=== PATIENT | female | born 1960 | race Caucasian/White ===

== ENCOUNTER 2016-05-30 11:06 | Inpatient (IN) ==
[2016-05-30] MEDS ORDERED: Naloxone 0.4 MG/ML INJ IVP PRN (17:33)
[2016-05-30] MEDS: Ringers Solution, Lactated 1,000 ML IVC SCH (18:37)
[2016-05-30] MEDS ORDERED: *HR* HYDROmorphone (PF) 1 MG/ML SYRINGE IVP PRN (19:36)
--- NOTE | 2016-05-30 20:28 | General Surg History&Physical ---
Date of Encounter: 05/30/16 Time of Encounter: 13:00 History of Present Illness Chief complaint: Left lower quadrant bowel pain, abnormal CT HPI: Ms. Thayer is a 56 year old female transferred from [facility] after presenting there with extensive history of left lower quadrant abdominal pain. Patient did symptoms started 05/24/15, with some nausea and colicky abdominal pain. The symptoms seemed to diminish for the next 2 days but then resumed and became significantly worse over the weekend. The patient presented this morning with severe left lower quadrant abdominal pain. A CT of the abdomen pelvis, which was eventually personally reviewed, demonstrated soft tissue gas dissecting within the left retroperitoneum extending into the upper abdomen within the anterior pararenal space, celiac access and left subphrenic space. The findings are consistent with acute perforated sigmoid diverticulitis prompting a referral to [facility] for further surgical evaluation and treatment. Past medical history : Rheumatoid arthritis Surgical history: Allergies: No known drug allergies Medications: Plaquenil 200 mg by mouth twice a day Meloxicam 15 mg daily Sulfasalazine 500 mg by mouth twice a day Social history: Patient is , lives at home with her spouse; G1, P1. Patient smoked approximately one quarter pack per day for 5 years in the 1980s. The patient admits to occasional alcohol use; no illicit drug use. Family history: Noncontributory Physical examination: Age-appropriate woman who appears to be in no acute distress; temperature 99.1, pulse 73, respirations 16, blood pressure 148/78. SPO2 on room air 98%. Skin: Warm, no obvious jaundice Cardiac: Regular rate, no appreciable murmurs Pulmonary: lungs clear to auscultation, no obvious abdominal pain on deep inspiration Abdomen: Soft, quiet, tenderness bilateral lower quadrants but most pronounced left lower quadrant. Involuntary guarding, left lower quadrant. No obvious intra-abdominal masses. Extremities: No obvious clubbing cyanosis or edema. Laboratories: White count 11.9; hemoglobin 13.2, hematocrit 37.8; platelet count 231,000. Electrolytes, BUN, creatinine within normal limits. Impression: Acute perforated sigmoid diverticulitis Acute left lower quadrant abdominal pain due to acute perforated sigmoid diverticulitis Rheumatoid arthritis Plan: Admit, NPO, IV antibiotics, serial abdominal examination. If able to delay surgery, allowing the acute inflammation to subside, this may allow primary resection with anastomosis. If abdominal pain increases with developing peritoneal signs - urgent surgery (Lion procedure) will be necessary. This has been discussed in detail with the patient. She expressed understanding and is willing to proceed with IV antibiotics and expectant follow -up. Past Med Surg Social Fam HX - Past Medical History Medical history: RA Psychiatric history: no psych history - Past Surgical History Surgical History: - Social History Smoking Status: Former smoker Smokeless Tobacco Status: No Alcohol use: none Drug use: none Medications and Allergies Calcium Carbonate [Calcium] 1,000 mg PO DAILY 05/30/16 [History] Hydroxychloroquine [Plaquenuil] 200 mg PO BID 05/30/16 [History] Meloxicam [Mobic] 15 mg PO DAILY 05/30/16 [History] Sulfasalazine [Azulfidine] 500 mg PO BID 05/30/16 [History] Allergies No Known Allergies Allergy (Verified 05/30/16 09:56) Review of Systems All systems PM: A 10-system review of systems was performed and is negative for pertinent findings except as documented above in the HPI. General Surgery Exam Initial Vital Signs Temp Pulse Resp BP Pulse Ox 99.1 F 68 18 150/68 100 05/30/16 12:45 05/30/16 12:45 05/30/16 12:45 05/30/16 12:45 05/30/16 12:45 Results - Labs All other labs normal.
[2016-05-31] MEDS: MetroNIDAZOLE 500 MG/100 ML 500 MG/100 ML BAG IVPB SCH ×4 (00:22→18:37)
[2016-05-31] MEDS: Piperacillin/Tazobactam 3.375 GM in D5% in Water (Mini-Bag+) 100 ML IVPB SCH ×3 (00:23→16:23)
[2016-05-31] MEDS: Ringers Solution, Lactated 1,000 ML IVC SCH (03:45)
[2016-05-31 04:55] LABS: Basophils % 0.4 %; Eosinophils # 0.3 K/mcL (0.0-0.6); Eosinophils % 4.4 %; Hematocrit 31.2 % (35.3-44.9); Hemoglobin 10.5 g/dL (11.5-15.4); Immature Granulocytes % 0.5 % (0-4); Lymphocytes # 1.3 K/mcL (0.6-4.6); Lymphocytes % 18.3 %; Mean Corpuscular HGB Conc 33.7 g/dL (31.6-35.5); Mean Corpuscular Hemoglobin 29.2 pg (28.0-33.3); Mean Corpuscular Volume 86.9 fL (83.0-100.0); Mean Platelet Volume 9.8 fL (9.4-12.4); Monocytes # 0.7 K/mcL (0.0-1.3); Monocytes % 8.9 %; Neutrophils # 4.9 K/mcL (1.6-8.9); Platelet Count 177 K/mcL (140-400); Red Blood Count 3.59 M/mcL (3.82-4.97); Red Cell Distribution Width 11.4 % (11.5-14.5); Segmented Neutrophils % 67.5 %
[2016-05-31 05:16] LABS: Alanine Aminotransferase 11 Units/L (0-55); Albumin 2.5 g/dL (3.5-5.0); Albumin/Globulin Ratio 0.8 (1.1-2.2); Alkaline Phosphatase 69 Units/L (38-126); Aspartate Amino Transferase 14 Units/L (5-34); BUN/Creatinine Ratio 17 (6-26); Bilirubin,Total 0.7 mg/dL (0.2-1.2); Blood Urea Nitrogen 12 mg/dL (7-20); Calcium 8.7 mg/dL (8.6-10.8); Carbon Dioxide 20 mEq/L (19-29); Chloride 109 mEq/L (98-109); Globulin 3.1 g/dL (2.4-3.5); Glucose 69 mg/dL (70-99); Magnesium 1.7 mg/dL (1.6-2.6); Osmolality,Calculated 288 (280-300); Potassium 3.9 mEq/L (3.5-4.5); Sodium 140 mEq/L (136-145); Total Protein 5.6 g/dL (6.0-8.3); eGFR For African Americans > 60 (> 60); eGFR For Non-African Americans > 60 (> 60)
[2016-05-31 05:40] LABS: Reactive Lymphocytes Present (Not Present)
[2016-05-31 05:41] LABS: Platelet Estimate Normal (Normal)
[2016-05-31] MEDS: *HR* Heparin 5,000 UNIT/ML VIAL SQ SCH ×2 (06:33→20:40)
[2016-05-31] MEDS ORDERED: *HR* Dextrose 50 % in Water (Syg) 50 ML SYRINGE IVP PRN (07:02)
[2016-05-31] MEDS: Pantoprazole 40 MG VIAL IVP SCH (08:13)
[2016-05-31] MEDS: Ondansetron 4 MG/2 ML VIAL IVP PRN ×2 (09:57→18:37)
[2016-05-31] MEDS ORDERED: *HR* Promethazine 25 MG/ML VIAL IVP PRN (13:32)
--- NOTE | 2016-05-31 13:38 | General Surgery Progress Note ---
Date of Encounter: 05/31/16 Time of Encounter: 13:34 Subjective Patient reports: nausea, vomiting Narrative: Hospital day 1: Patient indicates she was feeling better this morning with increased activity experience some nausea and vomiting. Abdominal pain may be slightly improved. Maximum temperature 90.9; pulse 67, respirations 16, blood pressure stable at 146/71. Lungs: Clear Abdomen: Soft with persistent tenderness in the left lower quadrant tenderness previously noted in the right lower quadrant is reduced. No obvious intra-abdominal masses, no rebound. Laboratories: White count has improved to 7.3; hemoglobin and 0.5, hematocrit 31.2 - reflecting IV fluids administered at 125 mL per hour Electrolytes, BUN and creatinine within normal limits. Impression: Acute sigmoid diverticulitis with perforation - status post slightly improved from admission. The patient appears to be responding to IV antibiotics. Nausea vomiting noted this a.m. - possibly due to metronidazole. Will continue to treat symptomatically Plan: Continue to monitor abdominal status change IV to D5.45% and reduce rate to 75mL/hr repeat CBC in AM Objective Vital Signs - Last 8 Hours Temp Pulse Resp BP Pulse Ox 05/31/16 12:18 98.0 F 67 16 146/71 98 05/31/16 08:00 97 05/31/16 07:51 99.0 F 16 82 134/66 97 Intake and Output 05/30/16 05/31/16 05/31/16 23:59 07:59 15:59 Intake Total 1200 / 1200 200 / 200 Output Total 100 / 100 700 / 700 Balance -100 / -100 500 / 500 200 / 200 Intake: IV Fluids 1200 / 1200 200 / 200 Lactated Ringers 1,000 ML 1000 / 1000 @ 125 mls/hr IVC .Q8H [facility] Rx#:[id number] Flagyl 500 MG/100 ML 500 100 / 100 100 / 100 mg In 100 ml @ 100 mls/hr IVPB Q6HR [facility] Rx#: [id number] Zosyn 3.375 GM In 100 / 100 100 / 100 Dextrose 5% (Minibag+) 100 ML 100 ML @ 25 mls/hr IVPB Q8HR [facility] Rx#: [id number] Output: Urine 100 / 100 700 / 700 Other: Weight 62 kg Blood Glucose* 56 86 Patient Weight 05/31/16 23:59 Weight 62 kg - Labs 05/31/16 04:03 05/31/16 04:03 Diabetes panel 05/31/16 Range/Units 04:03 Sodium 140 (136-145) mEq/L Potassium 3.9 (3.5-4.5) mEq/L Chloride 109 (98-109) mEq/L Carbon Dioxide 20 (19-29) mEq/L BUN 12 (7-20) mg/dL Creatinine 0.72 (0.57-1.11) mg/dL Glucose 69 L (70-99) mg/dL Calcium 8.7 (8.6-10.8) mg/dL AST 14 (5-34) Units/L ALT 11 (0-55) Units/L Alkaline Phosphatase 69 (38-126) Units/L Albumin 2.5 L (3.5-5.0) g/dL Calcium panel 05/31/16 Range/Units 04:03 Calcium 8.7 (8.6-10.8) mg/dL Albumin 2.5 L (3.5-5.0) g/dL Pituitary panel 05/31/16 Range/Units 04:03 Sodium 140 (136-145) mEq/L Potassium 3.9 (3.5-4.5) mEq/L Chloride 109 (98-109) mEq/L Carbon Dioxide 20 (19-29) mEq/L BUN 12 (7-20) mg/dL Creatinine 0.72 (0.57-1.11) mg/dL Glucose 69 L (70-99) mg/dL Calcium 8.7 (8.6-10.8) mg/dL Adrenal panel 05/31/16 Range/Units 04:03 Sodium 140 (136-145) mEq/L Potassium 3.9 (3.5-4.5) mEq/L Chloride 109 (98-109) mEq/L Carbon Dioxide 20 (19-29) mEq/L BUN 12 (7-20) mg/dL Creatinine 0.72 (0.57-1.11) mg/dL Glucose 69 L (70-99) mg/dL Calcium 8.7 (8.6-10.8) mg/dL Total Bilirubin 0.7 (0.2-1.2) mg/dL AST 14 (5-34) Units/L ALT 11 (0-55) Units/L Alkaline Phosphatase 69 (38-126) Units/L Albumin 2.5 L (3.5-5.0) g/dL Consult Discharge Plan - Plan Referrals: Shon Abebe MD [Primary Care Provider] -
[2016-05-31] MEDS: D5% in 0.45% NACL 1,000 ML IVC SCH (16:22)
[2016-05-31] MEDS: *HR* HYDROmorphone (PF) 1 MG/ML SYRINGE IVP PRN ×2 (16:31→20:48)
[2016-06-01] MEDS: Piperacillin/Tazobactam 3.375 GM in D5% in Water (Mini-Bag+) 100 ML IVPB SCH ×3 (01:00→16:01)
[2016-06-01] MEDS: MetroNIDAZOLE 500 MG/100 ML 500 MG/100 ML BAG IVPB SCH ×3 (01:00→12:04)
[2016-06-01] MEDS: *HR* HYDROmorphone (PF) 1 MG/ML SYRINGE IVP PRN ×5 (02:35→21:13)
[2016-06-01 05:53] LABS: Basophils % 0.3 %; Eosinophils # 0.4 K/mcL (0.0-0.6); Eosinophils % 3.6 %; Hematocrit 28.6 % (35.3-44.9); Hemoglobin 9.9 g/dL (11.5-15.4); Immature Granulocytes % 0.4 % (0-4); Lymphocytes # 1.5 K/mcL (0.6-4.6); Lymphocytes % 14.8 %; Mean Corpuscular HGB Conc 34.6 g/dL (31.6-35.5); Mean Corpuscular Hemoglobin 30.3 pg (28.0-33.3); Mean Corpuscular Volume 87.5 fL (83.0-100.0); Mean Platelet Volume 9.6 fL (9.4-12.4); Monocytes # 0.8 K/mcL (0.0-1.3); Monocytes % 8.1 %; Platelet Count 206 K/mcL (140-400); Red Blood Count 3.27 M/mcL (3.82-4.97); Red Cell Distribution Width 11.3 % (11.5-14.5); Segmented Neutrophils % 72.8 %
[2016-06-01 06:24] LABS: Neutrophils # 7.4 K/mcL (1.6-8.9)
[2016-06-01 06:25] LABS: Platelet Estimate Normal (Normal); Reactive Lymphocytes Present (Not Present)
[2016-06-01] MEDS: D5% in 0.45% NACL 1,000 ML IVC SCH ×2 (06:35→17:28)
[2016-06-01] MEDS: *HR* Heparin 5,000 UNIT/ML VIAL SQ SCH ×2 (06:36→18:09)
[2016-06-01] MEDS: Ondansetron 4 MG/2 ML VIAL IVP PRN (07:56)
[2016-06-01] MEDS: Pantoprazole 40 MG VIAL IVP SCH (07:56)
[2016-06-01] MEDS ORDERED: Ondansetron 4 MG/2 ML VIAL IVP PRN (16:17)
[2016-06-01] MEDS ORDERED: *HR* Promethazine 25 MG/ML VIAL IVP PRN (16:17)
--- NOTE | 2016-06-01 16:36 | General Surgery Progress Note ---
Date of Encounter: 06/01/16 Time of Encounter: 16:30 Subjective Patient reports: nausea, vomiting Narrative: Hospital Day #2 - recurrent nausea & vomiting - possibly due to metronidazole. Abdominal pain diminished. Afebrile, pulse 66, respirations 18, blood pressure 131/75 Skin: Warm without obvious jaundice Lungs: Clear to auscultation Abdomen: Soft with minimal tenderness left lower quadrant. Able to palpate much more deeply. No obvious intra-abdominal masses. No rebound. Active bowel sounds Laboratories: White count 10.1; hemoglobin 9.9 with hematocrit 28.6 - H&H diminished likely due to IV fluids, which will be reduced Impression/Plan: Acute sigmoid diverticulitis with perforation - abdominal pain diminished; but persistent/recurrent nausea and vomiting. Suspects the GI distress is due to metronidazole which will be discontinued. Continue Zosyn. may have clear liquids if nausea/vomiting resolve. repeat labs in AM. Objective Vital Signs - Last 8 Hours Temp Pulse Resp BP Pulse Ox 06/01/16 15:32 98.6 F 66 18 131/75 98 06/01/16 11:28 98.9 F 80 16 146/76 96 Intake and Output 06/01/16 06/01/16 06/01/16 07:59 15:59 23:59 Intake Total 1300 / 1300 100 / 100 Output Total 350 / 350 / Balance 950 / 950 99 / 99 Intake: IV Fluids 1300 / 1300 100 / 100 D5% And 0.45% Nacl 1000 1000 / 1000 Ml Bag 1,000 ML @ 75 mls/ hr IVC .[id number] [facility] Rx#: [id number] Flagyl 500 MG/100 ML 500 200 / 200 mg In 100 ml @ 100 mls/hr IVPB Q6HR [facility] Rx#: [id number] Zosyn 3.375 GM In 100 / 100 100 / 100 Dextrose 5% (Minibag+) 100 ML 100 ML @ 25 mls/hr IVPB Q8HR [facility] Rx#: [id number] Oral 0 / 0 Output: Urine 350 / 350 1 / Other: Meal npo Percent of Meal Consumed 0% Weight 63.1 kg Blood Glucose* 111 136 Patient Weight 06/01/16 23:59 Weight 63.1 kg - Labs 06/01/16 04:20 05/31/16 04:03 Consult Discharge Plan - Plan Referrals: Shon Abebe MD [Primary Care Provider] -
[2016-06-02] MEDS: Piperacillin/Tazobactam 3.375 GM in D5% in Water (Mini-Bag+) 100 ML IVPB SCH ×4 (01:07→23:45)
[2016-06-02] MEDS: D5% in 0.45% NACL 1,000 ML IVC SCH ×2 (01:09→17:19)
[2016-06-02 05:02] LABS: Hematocrit 31.5 % (35.3-44.9); Hemoglobin 10.9 g/dL (11.5-15.4); Mean Corpuscular HGB Conc 34.6 g/dL (31.6-35.5); Mean Corpuscular Hemoglobin 29.8 pg (28.0-33.3); Mean Corpuscular Volume 86.1 fL (83.0-100.0); Mean Platelet Volume 9.4 fL (9.4-12.4); Platelet Count 225 K/mcL (140-400); Red Blood Count 3.66 M/mcL (3.82-4.97); Red Cell Distribution Width 11.3 % (11.5-14.5)
[2016-06-02 05:22] LABS: BUN/Creatinine Ratio 6 (6-26); Blood Urea Nitrogen 4 mg/dL (7-20); Calcium 8.8 mg/dL (8.6-10.8); Carbon Dioxide 27 mEq/L (19-29); Chloride 103 mEq/L (98-109); Glucose 101 mg/dL (70-99); Magnesium 1.7 mg/dL (1.6-2.6); Osmolality,Calculated 287 (280-300); Phosphorous 3.8 mg/dL (2.3-4.7); Potassium 3.4 mEq/L (3.5-4.5); Sodium 140 mEq/L (136-145); eGFR For African Americans > 60 (> 60); eGFR For Non-African Americans > 60 (> 60)
[2016-06-02 05:54] LABS: Eosinophils # 0.5 K/mcL (0.0-0.6); Monocytes # 0.6 K/mcL (0.0-1.3); Neutrophils # 5.9 K/mcL (1.6-8.9); Platelet Estimate Normal (Normal); Reactive Lymphocytes Present (Not Present)
[2016-06-02] MEDS: *HR* Heparin 5,000 UNIT/ML VIAL SQ SCH ×2 (06:33→23:51)
[2016-06-02] MEDS: *HR* HYDROmorphone (PF) 1 MG/ML SYRINGE IVP PRN (06:33)
[2016-06-02] MEDS: Pantoprazole 40 MG VIAL IVP SCH (09:35)
--- NOTE | 2016-06-02 10:27 | General Surgery Progress Note ---
Date of Encounter: 06/02/16 Time of Encounter: 10:23 Subjective Patient reports: feels better Narrative: Hospital day #3 - patient feeling much improved; nausea and vomiting has resolved. Likely due to metronidazole which has been discontinued Afebrile, pulse 57, respirations 14, blood pressure 171/69 Lungs: Clear, no abdominal pain with deep inspiration Abdomen: soft, minimal tenderness LLQ. No obvious intra-abdominal masses or rebound. Laboratories: White count 8.0; hemoglobin 10.9 with hematocrit 31.5 (appears back to baseline); platelet count 225,000 Electrolytes, BUN, creatinine notable for potassium 3.4 - oral supplementation provided this morning Impression: Acute sigmoid diverticulitis with perforation - patient improving rapidly. GI distress likely due to metronidazole - resolved Plan: CT abdomen and pelvis in a.m. with IV and oral contrast Allow full liquid diet Objective Vital Signs - Last 8 Hours Temp Pulse Resp BP Pulse Ox 06/02/16 07:26 98.6 F 57 14 171/69 96 Intake and Output 06/01/16 06/02/16 06/02/16 23:59 07:59 15:59 Intake Total 100 / 100 1100 / 1100 360 / 360 Balance 100 / 100 1100 / 1100 360 / 360 Intake: IV Fluids 100 / 100 1100 / 1100 D5% And 0.45% Nacl 1000 1000 / 1000 Ml Bag 1,000 ML @ 25 mls/ hr IVC .Q24H [facility] Rx#: [id number] Zosyn 3.375 GM In 100 / 100 100 / 100 Dextrose 5% (Minibag+) 100 ML 100 ML @ 25 mls/hr IVPB Q8HR [facility] Rx#: [id number] Oral 360 / 360 Other: Meal Breakfast Blood Glucose* 102 - Labs 06/02/16 04:14 06/02/16 04:14 Diabetes panel 06/02/16 Range/Units 04:14 Sodium 140 (136-145) mEq/L Potassium 3.4 L (3.5-4.5) mEq/L Chloride 103 (98-109) mEq/L Carbon Dioxide 27 (19-29) mEq/L BUN 4 L (7-20) mg/dL Creatinine 0.72 (0.57-1.11) mg/dL Glucose 101 H (70-99) mg/dL Calcium 8.8 (8.6-10.8) mg/dL Calcium panel 06/02/16 Range/Units 04:14 Calcium 8.8 (8.6-10.8) mg/dL Phosphorus 3.8 (2.3-4.7) mg/dL Pituitary panel 06/02/16 Range/Units 04:14 Sodium 140 (136-145) mEq/L Potassium 3.4 L (3.5-4.5) mEq/L Chloride 103 (98-109) mEq/L Carbon Dioxide 27 (19-29) mEq/L BUN 4 L (7-20) mg/dL Creatinine 0.72 (0.57-1.11) mg/dL Glucose 101 H (70-99) mg/dL Calcium 8.8 (8.6-10.8) mg/dL Adrenal panel 06/02/16 Range/Units 04:14 Sodium 140 (136-145) mEq/L Potassium 3.4 L (3.5-4.5) mEq/L Chloride 103 (98-109) mEq/L Carbon Dioxide 27 (19-29) mEq/L BUN 4 L (7-20) mg/dL Creatinine 0.72 (0.57-1.11) mg/dL Glucose 101 H (70-99) mg/dL Calcium 8.8 (8.6-10.8) mg/dL Consult Discharge Plan - Plan Referrals: Shon Abebe MD [Primary Care Provider] -
[2016-06-03] MEDS: Pantoprazole 40 MG VIAL IVP SCH (08:12)
[2016-06-03] MEDS: Piperacillin/Tazobactam 3.375 GM in D5% in Water (Mini-Bag+) 100 ML IVPB SCH ×3 (08:12→23:47)
[2016-06-03] MEDS: *HR* Heparin 5,000 UNIT/ML VIAL SQ SCH ×2 (10:12→18:48)
--- NOTE | 2016-06-03 18:56 | General Surgery Progress Note ---
Date of Encounter: 06/03/16 Time of Encounter: 18:25 Subjective Patient reports: no new complaints, tolerating liquids well Narrative: Hospital day #4 - patient describes feeling well, "had a good day". No GI distress, nausea or vomiting since discontinuation of the metronidazole. Afebrile, 98.3; pulse 66, respirations 14, blood pressure 164/84. SPO2 on room air 99% Lungs: Clear to auscultation Abdomen: Soft with minimal tenderness in the left lower quadrant. Active bowel sounds. Laboratories: Potassium corrected to 3.7 CT abdomen and pelvis - personally reviewed with [facility] - resolution of acute inflammatory changes sigmoid colon however an organized air pocket left side of the abdomen is noted and appears to extend into the left pelvis. A small rim-enhancing fluid collection is also present. It is felt that these are consistent with abscesses related to the acute perforated sigmoid diverticulitis. Impression: 56-year-old female with acute sigmoid diverticulitis with perforation. Patient has responded to IV antibiotics with resolution of her abdominal pain with radiologic evidence of diminished acute inflammatory changes surrounding the sigmoid colon. A developing abscess is described. These findings have been discussed in detail with the patient. Based on these findings, surgery has been recommended rather than continued non operative management. The patient is a reasonable candidate for sigmoid colectomy with possible primary anastomosis but understands that a colostomy may still be necessary. Risks of surgery include hemorrhage, infection, intra-abdominal abscess, injury to adjacent structures such as ureters, bladder, uterus, tubes and ovaries. An incidental appendectomy may also be completed. If the uterus, left tube or ovary are densely adherent to the colon planned for resection these may be removed en bloc. A central venous line was also discussed in detail. Risks of central line placement include pneumothorax, malposition of the catheter, infection/bacteremia Questions were answered as best as possible. The patient expressed understanding and is willing to proceed. Surgery is scheduled in the AM. Objective Vital Signs - Last 8 Hours Temp Pulse Resp BP Pulse Ox 06/03/16 18:42 98.3 F 66 14 164/84 99 06/03/16 15:15 98.7 F 69 14 145/82 99 06/03/16 11:20 98.3 F 74 15 143/81 99 Intake and Output 06/03/16 06/03/16 06/03/16 07:59 15:59 23:59 Intake Total 100 / 100 620 / 620 520 / 520 Balance 100 / 100 620 / 620 520 / 520 Intake: IV Fluids 100 / 100 100 / 100 Zosyn 3.375 GM In 100 / 100 100 / 100 Dextrose 5% (Minibag+) 100 ML 100 ML @ 25 mls/hr IVPB Q8HR [facility] Rx#: [id number] Oral 520 / 520 520 / 520 Other: # Voids 3 3 Weight 62.9 kg Patient Weight 06/03/16 23:59 Weight 62.9 kg - Labs 06/02/16 04:14 06/03/16 04:02 Diabetes panel 06/03/16 Range/Units 04:02 Potassium 3.7 (3.5-4.5) mEq/L Pituitary panel 06/03/16 Range/Units 04:02 Potassium 3.7 (3.5-4.5) mEq/L Adrenal panel 06/03/16 Range/Units 04:02 Potassium 3.7 (3.5-4.5) mEq/L Consult Discharge Plan - Plan Referrals: Shon Abebe MD [Primary Care Provider] -
[2016-06-03] MEDS: D5% in 0.45% NACL 1,000 ML IVC SCH (22:00)
[2016-06-04 04:13] LABS: Basophils % 0.6 %; Eosinophils # 0.4 K/mcL (0.0-0.6); Eosinophils % 6.6 %; Hematocrit 33.9 % (35.3-44.9); Hemoglobin 11.7 g/dL (11.5-15.4); Immature Granulocytes % 1.3 % (0-4); Lymphocytes % 31.8 %; Mean Corpuscular HGB Conc 34.5 g/dL (31.6-35.5); Mean Corpuscular Hemoglobin 29.9 pg (28.0-33.3); Mean Corpuscular Volume 86.7 fL (83.0-100.0); Mean Platelet Volume 9.3 fL (9.4-12.4); Monocytes # 0.6 K/mcL (0.0-1.3); Monocytes % 8.8 %; Neutrophils # 3.2 K/mcL (1.6-8.9); Platelet Count 317 K/mcL (140-400); Red Blood Count 3.91 M/mcL (3.82-4.97); Red Cell Distribution Width 11.5 % (11.5-14.5); Segmented Neutrophils % 50.9 %
[2016-06-04 04:26] LABS: BUN/Creatinine Ratio 4 (6-26); Calcium 9.2 mg/dL (8.6-10.8); Carbon Dioxide 24 mEq/L (19-29); Chloride 106 mEq/L (98-109); Glucose 98 mg/dL (70-99); Osmolality,Calculated 289 (280-300); Potassium 3.7 mEq/L (3.5-4.5); Sodium 141 mEq/L (136-145); eGFR For African Americans > 60 (> 60); eGFR For Non-African Americans > 60 (> 60)
[2016-06-04 04:28] LABS: Blood Urea Nitrogen 3 mg/dL (7-20)
[2016-06-04] MEDS ORDERED: *HR* Propofol 200 MG/20 ML VIAL IVP ONE (07:09)
[2016-06-04] MEDS ORDERED: *HR* FentaNYL (PF) 100 MCG/2 ML VIAL ONE ×2 (07:09→09:15)
[2016-06-04] MEDS ORDERED: *HR* Midazolam HCl 2 MG/2 ML VIAL ONE (07:09)
[2016-06-04] MEDS ORDERED: Dexamethasone 4 MG/ML VIAL ONE (07:11)
[2016-06-04] MEDS ORDERED: Lidocaine -MPF 2% 2 ML VIAL ONE (07:11)
[2016-06-04] MEDS ORDERED: *HR* Rocuronium Bromide 50 MG/5 ML VIAL ONE (07:11)
[2016-06-04] MEDS ORDERED: Ondansetron 4 MG/2 ML VIAL ONE (07:11)
[2016-06-04] MEDS ORDERED: *HR* Succinylcholine 200 MG/10 ML VIAL IVP ONE (07:11)
--- NOTE | 2016-06-04 07:23 | Anesthesia Evaluation PreOp ---
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 History: Denies Any Significant HX Other Medical History: Other (rheumatoid arthritis, diverticulosis) Anesthesia History: No Prior Anesthetic Complications, Past Anesthesia (C- Section) Alcohol Use: none Drug use: none Medications and Allergies Calcium Carbonate [Calcium] 1,000 mg PO DAILY 05/30/16 [History] Hydroxychloroquine [Plaquenuil] 200 mg PO BID 05/30/16 [History] Meloxicam [Mobic] 15 mg PO DAILY 05/30/16 [History] Sulfasalazine [Azulfidine] 500 mg PO BID 05/30/16 [History] Allergies No Known Allergies Allergy (Verified 05/30/16 09:56) - Meds/Allergy Pre-op Review Medications Reviewed: Yes Allergies Reviewed: Yes Beta Blockers on Current Med List: No Anesthesia Results - Labs 06/04/16 03:41 06/04/16 03:41 Laboratory Tests 05/30/16 10:13 PT 12.4 H INR 1.1 APTT 23.6 L Anesthesia Exam Vital Signs/O2 Sat, Most Current Temp Pulse Resp BP Pulse Ox 97.3 F L 68 16 161/82 97 06/04/16 07:06 06/04/16 07:06 06/04/16 07:06 06/04/16 07:06 06/04/16 07:06 Height: 5'7''/1.7 m Weight: 137 lbs/62.3 kg NPO (# of Hours): 8 Pain Scale: 0 Pain Scale Used: Numeric (1 - 10) - HEENT Pupil (Motor): EOMI Mallampati: II Teeth: Normal Oral Opening: Greater than 3 - LEATHER DRIER LOC: Oriented LEATHER DRIER Motor: Normal RUE, Normal LUE, Normal RLE, Normal LLE, Normal Face LEATHER DRIER Sensory: Normal: RUE, LUE, RLE, LLE, Face - Cardiac Rhythm: Regular Murmur: None - Pulmonary Breath Sounds: bilateral Clear Respiratory Effort: Symmetrical Anesthesia Assess/Plan ASA Score: 2 Modified Margie Scale for Level of Consciousness: Cooperative, oriented, and tranquil Anesthetic Plan: General Monitoring Plan: Standard Monitors Recovery Plan: PACU
[2016-06-04] MEDS ORDERED: *HR* HYDROmorphone (PF) 1 MG/ML SYRINGE IVP PRN (08:00)
[2016-06-04] MEDS ORDERED: *HR* Morphine 10 MG/ML VIAL ONE (09:23)
[2016-06-04] MEDS ORDERED: Neostigmine Methylsulfate 3 MG/3 ML SYRINGE ONE (10:57)
[2016-06-04] MEDS ORDERED: Bupivacaine/EPI 1:200k 0.5%PF 30 ML VIAL ONE (11:19)
--- NOTE | 2016-06-04 12:11 | Operative Note ---
Date of procedure: 06/04/16 Pre-op diagnosis: Sigmoid diverticulitis with perforation; pericolic abscess Post-op diagnosis: same Procedure: Exploratory celiotomy; sigmoid colectomy with stapled colocolonic anastomosis; intraoperative rigid sigmoidoscopy; incidental appendectomy; placement of central venous line via left subclavian vein Complications: None apparent Anesthesia: GETA Local Anesthetics: 0.25% Sensorcaine HCL with Epinephrine 1:200,000 SubQ (cc) ( 30 mL) Surgeon: Jeremi Castillo Crude Oil Treater: Gopal Saunders Estimated blood loss (cc): 100 IV fluids (cc): 2,000 Specimen: Sigmoid colon, anastomotic rings, appendix Condition: stable Disposition: PACU Procedure in Detail: The patient was brought to the operating room where she was placed supine upon the operating room table. The patient was appropriately identified as to person and procedure. The accuracy of this information is confirmed by the procedure team. The patient was intubated and anesthetized under the supervision of Dr. Elias Kumar. Once the airway was secured, the patient was placed in low lithotomy using yellowfin stirrups. The perineum and abdomen were prepped and draped in usual sterile fashion. A midline incision was created with a #10 scalpel beginning cephalad to the umbilicus extending to the symphysis pubis. The dissection was carried to the fascia. Bleeding points were controlled electrocautery. The fascia was divided along the linea alba in the midline. The abdomen was entered atraumatically. Exposure was facilitated with use of a Omni-Tract self-retaining retractor. Abdominal exploration was completed the liver stomach and spleen appeared to be normal. The small bowel was examined from the ligament of Treitz to the ileocecal valve. Except for some loops densely adherent to the inflamed sigmoid the small bowel appeared normal. A normal-appearing appendix was encountered in its usual anatomic location the cecum, ascending, transverse and descending colons were notable for fairly firm, inspissated stool, but otherwise essentially unremarkable. The sigmoid colon was markedly thickened with dense adhesions to the lateral peritoneal wall and medially to several small loops of bowel. The uterus was multiparous but small in size. Bilateral tubes and ovaries appeared normal. The sigmoid colon was mobilized medially by incising the peritoneal reflection along the white line of Toldt. Dissection was carried into the pelvis where the inflammatory changes ended. At the rectosigmoid/distal sigmoid mesentery was divided and the bowel was divided with the aid of an Ethicon TX 60 mm stapler (blue cartridge). The mesentery was then divided with the aid of a Covidien Impact Dissector. Dissection was carried proximally onto the descending colon where the acute inflammatory changes were no longer evident. The descending colon was skeletonized, and prepared for division. A pursestring device was applied, the bowel was divided distal to the pursestring device. The sigmoid colon was removed and sent to pathology for further examination. The colon measured to 29 mm using an EEA sound. This allowed me to select a 29 mm ECS EEA stapler. The anvil was placed in the distal descending colon followed by securing the pursestring. It would be necessary to mobilize the remainder of the descending colon and splenic flexure to facilitate a tension-free stapled anastomosis. This was accomplcished incising the lateral peritoneal reflection extending the dissection to the distal transverse colon. This dissection was again aided by the Covidien Impact dissector. Bilateral ureters were identified and appeared to be intact. The distal descending colon was then mobilized to the pelvis preparation for the stapled colocolonic anastomosis. Surgeon proceeded to the perineum where the EEA stapler was inserted rectally and advanced to the staple line of the Lion pouch. The spike was deployed, and the anvil attached. A stapled, end -to-end, colocolonic anastomosis was completed without difficulty. On removal of the stapler, 2 intact rings were recovered. A rigid sigmoidoscope was inserted thru the anus and advanced to the colocolonic anastomosis. On insufflation of the colon, the anastomosis appeared to be intact. The engineering assistant had filled the pelvis with saline with no "string of bubbles" identified. The bowel was decompressed, the rigid sigmoidoscope removed. The surgeon was regowned and gloved. An incidental appendectomy was completed I dividing the mesoappendix with the Covidien impact dissector and dividing the appendix at its junction with the cecum with the Ethicon TX 60 mm stapler. The abdomen was inspected for adequate hemostasis. Additional irrigation was completed, the fluid was evacuated with the suction device. The anastomotic rings and appendix was sent to pathology (along with the sigmoid colon). The abdomen was then closed in layers. The peritoneum was closed with a running interlocking 0 Vicryl. The fascia was closed with interrupted [id number] s of 0 Vicryl. The fascia was infiltrated with several milliliters of 0.25% bupivacaine with 1-200,000 epinephrine. The skin edges were also infiltrated with the bupivacaine with epinephrine solution. The subcutaneous tissue was reapproximated with running 3-0 Vicryl. The skin edges approximated with cheryl. A dry sterile dressing was applied. The surgeon was regowned and gloved. The patient placed in Trendelenburg. The left anterior chest and clavicular area was prepped and draped in the usual sterile fashion. A whole body drape was used. Using an 18-gauge needle, the left subclavian vein was located. At no time was air aspirated. In the technique described by Randi, a guidewire was inserted, the needle extracted. The skin tract was incised and dilated. A 16 cm, 7-New Zealander, 3 lumen , Arrowgard catheter was passed over the guidewire to 15 cm. The guide wire was removed. The 3 lumens were aspirated for blood and flushed with sterile saline. The catheter was secured to the infraclavicular skin with 3-0 silk at 15 cm. A Biopatch followed by an OpSite dressing was applied. The patient was taken recovery in stable condition. Needle, sponge, and instrument counts were correct at the close of the case. Total volume of 0.25% bupivacaine with 1-200, 000 units epinephrine used during this procedure, 30 mL.
[2016-06-04] MEDS ORDERED: Naloxone 0.4 MG/ML INJ IVP PRN (12:56)
[2016-06-04] MEDS ORDERED: Ringers Solution, Lactated 500 ML IVC ONE (12:56)
[2016-06-04] MEDS ORDERED: *HR* Promethazine 25 MG/ML VIAL IVP PRN (12:56)
--- NOTE | 2016-06-04 13:07 | Anesthesia Evaluation Post Op ---
Date of Encounter: 06/04/16 Time of Encounter: 12:37 - Vital Signs Vital Signs: Vital Signs/O2 Sat, Most Current Temp Pulse Resp BP Pulse Ox 98.2 F 90 16 147/73 93 L 06/04/16 12:57 06/04/16 12:57 06/04/16 12:57 06/04/16 12:57 06/04/16 12:57 - Lungs Lungs: Clear Ascult./Percussion - Airway Airway: Non-obstructed - Cardiovascular Regular Rate - Mental Status Mental Status: Alert & Oriented, Answers Appropriately - Pain Pain Scale: 3 Pain Scale used: Numeric (1 - 10) - Nausea Vomiting Nausea Vomiting: Not Present - Hydration Hydration: NPO, Sanchez catheter - Discharge PostOp Status: Transfer Patient to floor
[2016-06-04] MEDS: Acetaminophen IV 1,000 MG/100 ML INFUS..BTL IVPB SCH ×2 (13:59→14:55)
[2016-06-04] MEDS: *HR* HYDROmorphone (PF) 1 MG/ML SYRINGE IVP PRN ×2 (14:01→22:14)
[2016-06-04] MEDS: Piperacillin/Tazobactam 3.375 GM in D5% in Water (Mini-Bag+) 100 ML IVPB SCH (14:55)
[2016-06-04] MEDS: Ringers Solution, Lactated 1,000 ML IVC SCH (14:56)
[2016-06-05] MEDS: Piperacillin/Tazobactam 3.375 GM in D5% in Water (Mini-Bag+) 100 ML IVPB SCH ×5 (00:23→23:38)
[2016-06-05] MEDS: Ondansetron 4 MG/2 ML VIAL IVP PRN (00:23)
[2016-06-05] MEDS: Ringers Solution, Lactated 1,000 ML IVC SCH ×2 (00:28→20:28)
[2016-06-05] MEDS: *HR* HYDROmorphone (PF) 1 MG/ML SYRINGE IVP PRN ×9 (00:54→23:46)
[2016-06-05] MEDS: Acetaminophen IV 1,000 MG/100 ML INFUS..BTL IVPB SCH ×5 (01:43→23:39)
[2016-06-05 05:19] LABS: Basophils % 0.1 %; Eosinophils % 0.1 %; Hematocrit 30.3 % (35.3-44.9); Hemoglobin 10.3 g/dL (11.5-15.4); Immature Granulocytes % 0.4 % (0-4); Mean Corpuscular Hemoglobin 29.9 pg (28.0-33.3); Mean Corpuscular Volume 88.1 fL (83.0-100.0); Mean Platelet Volume 8.8 fL (9.4-12.4); Monocytes # 0.9 K/mcL (0.0-1.3); Monocytes % 5.8 %; Neutrophils # 12.6 K/mcL (1.6-8.9); Platelet Count 327 K/mcL (140-400); Red Blood Count 3.44 M/mcL (3.82-4.97); Red Cell Distribution Width 11.8 % (11.5-14.5); Segmented Neutrophils % 86.6 %
[2016-06-05 05:30] LABS: BUN/Creatinine Ratio 8 (6-26); Calcium 8.6 mg/dL (8.6-10.8); Carbon Dioxide 26 mEq/L (19-29); Chloride 104 mEq/L (98-109); Glucose 110 mg/dL (70-99); Osmolality,Calculated 282 (280-300); Potassium 4.1 mEq/L (3.5-4.5); Sodium 137 mEq/L (136-145); eGFR For African Americans > 60 (> 60); eGFR For Non-African Americans > 60 (> 60)
[2016-06-05 05:33] LABS: Blood Urea Nitrogen 5 mg/dL (7-20)
[2016-06-05] MEDS: Pantoprazole 40 MG VIAL IVP SCH ×2 (08:03→20:29)
--- NOTE | 2016-06-05 10:31 | General Surgery Progress Note ---
Date of Encounter: 06/05/16 Time of Encounter: 10:00 Subjective Narrative: Postoperative day 1: patient c/o incisional pain as expected. Patient describes emesis in the immediate post op period, none so far today Afebrile, 98.0; pulse 82, respirations 16, blood pressure 184/84 (previously 140/63) - the elevated blood pressure likely due to pain. Lungs: Clear to auscultation; diminished breath sounds left side. Patient denies any chest pain, difficulty in breathing, no respiratory distress Known left-sided pneumothorax related to central line placement; a.m. chest x-ray demonstrates a small, stable left pneumothorax Abdomen: Soft, nondistended, quiet. Dressing removed - incision clean and dry Urine output - approximately 1300 mL for 06/04/2016; 800 mL so far today Laboratories: White count 14.6, likely in response to surgery; hemoglobin 10.3 with hematocrit 30.3. Platelet count 327,000. Electrolytes, BUN, creatinine within normal limits. Accu-Chek 110 Impression/Plan: 56-year-old, postoperative day 1, status post exploratory celiotomy with sigmoid colectomy and stapled colocolonic anastomosis, intraoperative rigid sigmoidoscopy and incidental appendectomy for acute sigmoid diverticulitis with perforation. Acceptable postoperative status. Small left pneumothorax related to central vein line placement via left subclavian vein - no respiratory stress; radiologic evidence of stability. Continue to monitor SPO2 and respiratory status. Anemia - H&H stable from preoperative state. Diminished H&H likely due to IV fluids Rheumatoid arthritis Encourage activity OOB maintain Sanchez catheter today for accurate I&O, remove in AM Objective Vital Signs - Last 8 Hours Temp Pulse Resp BP Pulse Ox 06/05/16 07:18 98.0 F 82 16 184/84 97 06/05/16 04:06 97.5 F L 53 16 140/63 95 Intake and Output 06/04/16 06/05/16 06/05/16 23:59 07:59 15:59 Intake Total 100 / 100 1550 / 1550 Output Total 800 / 800 800 / 800 Balance -700 / -700 750 / 750 Intake: IV Fluids 100 / 100 1200 / 1200 Lactated Ringers 1,000 ML 1000 / 1000 @ 100 mls/hr IVC .Q10H [facility] Rx#:[id number] Ofirmev 1,000 mg In 100 100 / 100 ml @ 400 mls/hr IVPB Q6H [facility] Rx#:[id number] Zosyn 3.375 GM In 100 / 100 100 / 100 Dextrose 5% (Minibag+) 100 ML 100 ML @ 25 mls/hr IVPB Q8HR [facility] Rx#: [id number] Oral 350 / 350 Output: Urine 800 / 800 Catheter 800 / 800 - Labs 06/05/16 04:40 06/05/16 04:40 Diabetes panel 06/05/16 Range/Units 04:40 Sodium 137 (136-145) mEq/L Potassium 4.1 (3.5-4.5) mEq/L Chloride 104 (98-109) mEq/L Carbon Dioxide 26 (19-29) mEq/L BUN 5 L (7-20) mg/dL Creatinine 0.65 (0.57-1.11) mg/dL Glucose 110 H (70-99) mg/dL Calcium 8.6 (8.6-10.8) mg/dL Calcium panel 06/05/16 Range/Units 04:40 Calcium 8.6 (8.6-10.8) mg/dL Pituitary panel 06/05/16 Range/Units 04:40 Sodium 137 (136-145) mEq/L Potassium 4.1 (3.5-4.5) mEq/L Chloride 104 (98-109) mEq/L Carbon Dioxide 26 (19-29) mEq/L BUN 5 L (7-20) mg/dL Creatinine 0.65 (0.57-1.11) mg/dL Glucose 110 H (70-99) mg/dL Calcium 8.6 (8.6-10.8) mg/dL Adrenal panel 06/05/16 Range/Units 04:40 Sodium 137 (136-145) mEq/L Potassium 4.1 (3.5-4.5) mEq/L Chloride 104 (98-109) mEq/L Carbon Dioxide 26 (19-29) mEq/L BUN 5 L (7-20) mg/dL Creatinine 0.65 (0.57-1.11) mg/dL Glucose 110 H (70-99) mg/dL Calcium 8.6 (8.6-10.8) mg/dL - VTE Documentation of Mechanical Device: Intermittent pneumatic compression device Consult Discharge Plan - Plan Referrals: Shon Abebe MD [Primary Care Provider] -
[2016-06-05] MEDS: D5% in 0.45% NACL 1,000 ML IVC SCH (11:42)
[2016-06-06] MEDS: D5% in 0.45% NACL 1,000 ML IVC SCH (02:16)
[2016-06-06 03:52] LABS: Basophils % 0.2 %; Eosinophils # 0.3 K/mcL (0.0-0.6); Eosinophils % 1.8 %; Hematocrit 29.5 % (35.3-44.9); Hemoglobin 9.8 g/dL (11.5-15.4); Immature Granulocytes % 0.8 % (0-4); Lymphocytes # 1.1 K/mcL (0.6-4.6); Lymphocytes % 6.7 %; Mean Corpuscular HGB Conc 33.2 g/dL (31.6-35.5); Mean Corpuscular Hemoglobin 29.5 pg (28.0-33.3); Mean Corpuscular Volume 88.9 fL (83.0-100.0); Mean Platelet Volume 8.9 fL (9.4-12.4); Monocytes # 0.8 K/mcL (0.0-1.3); Monocytes % 4.8 %; Neutrophils # 13.8 K/mcL (1.6-8.9); Platelet Count 315 K/mcL (140-400); Red Blood Count 3.32 M/mcL (3.82-4.97); Red Cell Distribution Width 11.8 % (11.5-14.5); Segmented Neutrophils % 85.7 %
[2016-06-06 04:21] LABS: BUN/Creatinine Ratio 9 (6-26); Blood Urea Nitrogen 6 mg/dL (7-20); Calcium 8.6 mg/dL (8.6-10.8); Carbon Dioxide 28 mEq/L (19-29); Chloride 102 mEq/L (98-109); Glucose 105 mg/dL (70-99); Osmolality,Calculated 280 (280-300); Potassium 3.7 mEq/L (3.5-4.5); Sodium 136 mEq/L (136-145); eGFR For African Americans > 60 (> 60); eGFR For Non-African Americans > 60 (> 60)
[2016-06-06] MEDS: *HR* HYDROmorphone (PF) 1 MG/ML SYRINGE IVP PRN ×4 (06:35→23:45)
[2016-06-06] MEDS: Acetaminophen IV 1,000 MG/100 ML INFUS..BTL IVPB SCH ×3 (06:36→20:23)
[2016-06-06] MEDS: Pantoprazole 40 MG VIAL IVP SCH (09:25)
[2016-06-06] MEDS: Piperacillin/Tazobactam 3.375 GM in D5% in Water (Mini-Bag+) 100 ML IVPB SCH ×2 (09:25→18:07)
[2016-06-06] MEDS ORDERED: D10% in Water 500 ML IV PRN (09:54)
--- NOTE | 2016-06-06 12:56 | General Surgery Progress Note ---
Date of Encounter: 06/06/16 Time of Encounter: 11:30 Subjective Patient reports: vomiting Narrative: Postoperative day 2: Patient with emesis 1 earlier today; denies nausea but did describe cramping abdominal pain prior to the emesis. Currently in no distress. Afebrile, 98.3; pulse 67, respirations 16, blood pressure 162/80. Lungs: Clear, no obvious abdominal pain with deep inspiration Abdomen: Soft, nondistended, hypoactive bowel sounds noted. Incision clean and dry. Chest x-ray this a.m. shows improving left pneumothorax; free air under the diaphragms as expected related to open exploratory celiotomy 2 days ago Leukocytosis has increased to 16.1; hemoglobin 9.8 with hematocrit 29.5, platelet count 315,000 Electrolytes, BUN, creatinine within normal limits - remaining stable Pathology pending Impression: A 56-year-old female, postoperative day 2 status post exploratory celiotomy with sigmoid colectomy with stapled colocolonic anastomosis for acute diverticulitis with perforation. Episode of emesis this morning; most likely related to await return of bowel function following surgery. Leukocytosis has increased to 16.1; patient continues to be on antibiotics Anemia - essentially stable from preoperative state; continue to monitor Prolonged bowel dysfunction both pre-and postop - will initiate TPN to provide calories and protein until enteral route available Objective Vital Signs - Last 8 Hours Temp Pulse Resp BP Pulse Ox 06/06/16 10:41 98.3 F 67 16 162/80 99 06/06/16 08:51 98.1 F 68 16 157/81 95 Intake and Output 06/05/16 06/06/16 06/06/16 23:59 07:59 15:59 Intake Total 420 / 420 1100 / 1100 Output Total 800 / 800 1800 / 1800 700 / 700 Balance -380 / -380 -700 / -700 -700 / -700 Intake: IV Fluids 300 / 300 1100 / 1100 D5% And 0.45% Nacl 1000 1000 / 1000 Ml Bag 1,000 ML @ 60 mls/ hr IVC .[id number] [facility] Rx#: [id number] Ofirmev 1,000 mg In 100 200 / 200 ml @ 400 mls/hr IVPB Q6H [facility] Rx#:[id number] Zosyn 3.375 GM In 100 / 100 100 / 100 Dextrose 5% (Minibag+) 100 ML 100 ML @ 25 mls/hr IVPB Q8HR [facility] Rx#: [id number] Oral 120 / 120 Output: Urine 1800 / 1800 500 / 500 Urethral (Sanchez) 1800 / 1800 Emesis 200 / 200 Catheter 800 / 800 Other: Weight 62 kg Patient Weight 06/06/16 23:59 Weight 62 kg - Labs 06/06/16 03:30 06/06/16 03:30 Diabetes panel 06/06/16 Range/Units 03:30 Sodium 136 (136-145) mEq/L Potassium 3.7 (3.5-4.5) mEq/L Chloride 102 (98-109) mEq/L Carbon Dioxide 28 (19-29) mEq/L BUN 6 L (7-20) mg/dL Creatinine 0.67 (0.57-1.11) mg/dL Glucose 105 H (70-99) mg/dL Calcium 8.6 (8.6-10.8) mg/dL Calcium panel 06/06/16 Range/Units 03:30 Calcium 8.6 (8.6-10.8) mg/dL Pituitary panel 06/06/16 Range/Units 03:30 Sodium 136 (136-145) mEq/L Potassium 3.7 (3.5-4.5) mEq/L Chloride 102 (98-109) mEq/L Carbon Dioxide 28 (19-29) mEq/L BUN 6 L (7-20) mg/dL Creatinine 0.67 (0.57-1.11) mg/dL Glucose 105 H (70-99) mg/dL Calcium 8.6 (8.6-10.8) mg/dL Adrenal panel 06/06/16 Range/Units 03:30 Sodium 136 (136-145) mEq/L Potassium 3.7 (3.5-4.5) mEq/L Chloride 102 (98-109) mEq/L Carbon Dioxide 28 (19-29) mEq/L BUN 6 L (7-20) mg/dL Creatinine 0.67 (0.57-1.11) mg/dL Glucose 105 H (70-99) mg/dL Calcium 8.6 (8.6-10.8) mg/dL - VTE Documentation of Mechanical Device: Intermittent pneumatic compression device Consult Discharge Plan - Plan Referrals: Shon Abebe MD [Primary Care Provider] -
[2016-06-06] MEDS ORDERED: D5% in 0.45% NACL 1,000 ML IVC SCH (13:07)
[2016-06-06] MEDS: Ondansetron 4 MG/2 ML VIAL IVP PRN (13:21)
[2016-06-06] MEDS ORDERED: Clinimix E 5%-15% SOLUTION 2,000 ML with MVI, adult with vitamin K 10 ML IV SCH (17:00)
[2016-06-07] MEDS: Acetaminophen IV 1,000 MG/100 ML INFUS..BTL IVPB SCH ×3 (00:48→11:52)
[2016-06-07] MEDS: Piperacillin/Tazobactam 3.375 GM in D5% in Water (Mini-Bag+) 100 ML IVPB SCH ×4 (03:01→21:55)
[2016-06-07 03:51] LABS: Basophils % 0.2 %; Eosinophils # 0.5 K/mcL (0.0-0.6); Eosinophils % 2.8 %; Hematocrit 28.6 % (35.3-44.9); Hemoglobin 9.6 g/dL (11.5-15.4); Immature Granulocytes % 0.7 % (0-4); Immature Platelets 1.8 % (1.1-6.1); Lymphocytes # 1.1 K/mcL (0.6-4.6); Mean Corpuscular HGB Conc 33.6 g/dL (31.6-35.5); Mean Corpuscular Hemoglobin 29.8 pg (28.0-33.3); Mean Corpuscular Volume 88.8 fL (83.0-100.0); Mean Platelet Volume 9.1 fL (9.4-12.4); Monocytes # 0.8 K/mcL (0.0-1.3); Neutrophils # 16.4 K/mcL (1.6-8.9); Platelet Count 414 K/mcL (140-400); Red Blood Count 3.22 M/mcL (3.82-4.97); Red Cell Distribution Width 11.9 % (11.5-14.5); Segmented Neutrophils % 86.3 %
[2016-06-07 04:09] LABS: Alanine Aminotransferase 35 Units/L (0-55); Albumin 2.2 g/dL (3.5-5.0); Albumin/Globulin Ratio 0.6 (1.1-2.2); Alkaline Phosphatase 72 Units/L (38-126); Aspartate Amino Transferase 42 Units/L (5-34); BUN/Creatinine Ratio 9 (6-26); Bilirubin,Total 0.4 mg/dL (0.2-1.2); Blood Urea Nitrogen 6 mg/dL (7-20); Calcium 8.6 mg/dL (8.6-10.8); Carbon Dioxide 29 mEq/L (19-29); Chloride 103 mEq/L (98-109); Globulin 3.5 g/dL (2.4-3.5); Glucose 136 mg/dL (70-99); Magnesium 1.9 mg/dL (1.6-2.6); Osmolality,Calculated 288 (280-300); Potassium 3.5 mEq/L (3.5-4.5); Sodium 139 mEq/L (136-145); Total Protein 5.7 g/dL (6.0-8.3); Triglycerides 161 mg/dL (< 150); eGFR For African Americans > 60 (> 60); eGFR For Non-African Americans > 60 (> 60)
--- NOTE | 2016-06-07 06:54 | General Surgery Progress Note ---
<Gopal Saunders - Last Filed: 06/07/16 06:41> Date of Encounter: 06/07/16 Time of Encounter: 06:30 - Assessment and Plan (1) Acute diverticulitis Current Visit: Yes Status: Acute Postoperative day 3: Patient states she feels better today. Currently no distress. She states her pain is improving. Denies nausea, emesis yesterday and overnight. Patient denies bowel movement or flatus since surgery. Afebrile 98.3F, pulse 69, respiratory rate 16, blood pressure 172/72, oxygen saturation is 99% on 1.5 L O2 nasal cannula Lungs: Clear, no rales, rhonchi, wheezes. Breath sounds present bilaterally. No abdominal or chest pain with inspiration. Heart: Regular rate and rhythm, no murmurs, rubs, gallops. Abdomen: Soft, nondistended, mildly tender to palpation over the incision, bowel sounds present. Incision is clean and dry, no erythema or drainage noted. Leukocytosis increased to 19.0 today. Hemoglobin 9.6, hematocrit 28.6, platelet count 414. Comprehensive metabolic panel shows electrolytes, BUN, creatinine within normal limits. AST 42, ALT 35, total bili 0.4 Pathology pending. Impression: A 56-year-old female, postoperative day 3 status post exploratory celiotomy with sigmoid colectomy stapled colocolonic anastomosis for acute diverticulitis with perforation. Emesis from yesterday has resolved: We will continue to monitor. Leukocytosis has increased to 19.0; Patient continues to be on antibiotics. Patient is afebrile, improving clinically. No other signs of infection at this time. We will continue to monitor. Anemia remains essentially stable from her preoperative state; will continue to monitor. Prolonged bowel dysfunction both pre-and postop - TPN has been initiated for caloric and protein nutrition until the patient is able to take nutrition by mouth. We will continue to encourage ambulation (2) Perforation bowel Current Visit: Yes Status: Acute Subjective Patient reports: feels better Objective Vital Signs - Last 8 Hours Temp Pulse Resp BP Pulse Ox 06/07/16 02:57 98.3 F 69 16 172/72 99 06/07/16 00:30 168/76 06/06/16 23:31 98.0 F 88 16 191/46 93 L Intake and Output 06/06/16 06/06/1617 15:59 23:59 07:59 Intake Total 300 / 300 905 / 905 561 / 561 Output Total 1100 / 1100 200 / 200 950 / 950 Balance -800 / -800 705 / 705 -389 / -389 Intake: IV Fluids 300 / 300 905 / 905 100 / 100 D5% And 0.45% Nacl 1000 705 / 705 Ml Bag 1,000 ML @ 60 mls/ hr IVC .[id number] [facility] Rx#: [id number] Ofirmev 1,000 mg In 100 200 / 200 100 / 100 100 / 100 ml @ 400 mls/hr IVPB Q6H [facility] Rx#:[id number] Zosyn 3.375 GM In 100 / 100 100 / 100 Dextrose 5% (Minibag+) 100 ML 100 ML @ 25 mls/hr IVPB Q8HR [facility] Rx#: [id number] Oral 0 / 0 Other 461 / 461 Output: Urine 900 / 900 200 / 200 950 / 950 Emesis 200 / 200 Other: Meal NPO For Lunch # Voids 1 3 Weight 63.2 kg Blood Glucose* 111 118 Patient Weight 06/07/16 23:59 Weight 63.2 kg - Labs 06/07/16 03:10 06/07/16 03:10 Diabetes panel 06/07/16 Range/Units 03:10 Sodium 139 (136-145) mEq/L Potassium 3.5 (3.5-4.5) mEq/L Chloride 103 (98-109) mEq/L Carbon Dioxide 29 (19-29) mEq/L BUN 6 L (7-20) mg/dL Creatinine 0.64 (0.57-1.11) mg/dL Glucose 136 H (70-99) mg/dL Calcium 8.6 (8.6-10.8) mg/dL AST 42 H (5-34) Units/L ALT 35 (0-55) Units/L Alkaline Phosphatase 72 (38-126) Units/L Albumin 2.2 L (3.5-5.0) g/dL Triglycerides 161 H (< 150) mg/dL Calcium panel 06/07/16 Range/Units 03:10 Calcium 8.6 (8.6-10.8) mg/dL Phosphorus 3.0 (2.3-4.7) mg/dL Albumin 2.2 L (3.5-5.0) g/dL Pituitary panel 06/07/16 Range/Units 03:10 Sodium 139 (136-145) mEq/L Potassium 3.5 (3.5-4.5) mEq/L Chloride 103 (98-109) mEq/L Carbon Dioxide 29 (19-29) mEq/L BUN 6 L (7-20) mg/dL Creatinine 0.64 (0.57-1.11) mg/dL Glucose 136 H (70-99) mg/dL Calcium 8.6 (8.6-10.8) mg/dL Adrenal panel 06/07/16 Range/Units 03:10 Sodium 139 (136-145) mEq/L Potassium 3.5 (3.5-4.5) mEq/L Chloride 103 (98-109) mEq/L Carbon Dioxide 29 (19-29) mEq/L BUN 6 L (7-20) mg/dL Creatinine 0.64 (0.57-1.11) mg/dL Glucose 136 H (70-99) mg/dL Calcium 8.6 (8.6-10.8) mg/dL Total Bilirubin 0.4 (0.2-1.2) mg/dL AST 42 H (5-34) Units/L ALT 35 (0-55) Units/L Alkaline Phosphatase 72 (38-126) Units/L Albumin 2.2 L (3.5-5.0) g/dL - VTE Documentation of Mechanical Device: Intermittent pneumatic compression device Consult Discharge Plan - Plan Referrals: Shon Abebe MD [Primary Care Provider] - <Jeremi Castillo - Last Filed: 06/07/16 12:51> Objective Vital Signs - Last 8 Hours Temp Pulse Resp BP Pulse Ox 06/07/16 11:06 98.5 F 72 16 169/76 95 06/07/16 09:39 93 L 06/07/16 07:44 98.5 F 79 17 137/78 93 L Intake and Output 06/06/16 06/07/16 06/07/16 23:59 07:59 15:59 Intake Total 905 / 905 1011 / 1011 401 / 401 Output Total 200 / 200 950 / 950 0 / 0 Balance 705 / 705 61 / 61 401 / 401 Intake: IV Fluids 905 / 905 550 / 550 401 / 401 Clinimix E 5%-15% 401 / 401 SOLUTION 2,000 ML @ 50 mls/hr IV .Q24H [facility] with M.v.i. Adult 10 ml Rx#: [id number] D5% And 0.45% Nacl 1000 705 / 705 Ml Bag 1,000 ML @ 60 mls/ hr IVC .[id number] [facility] Rx#: [id number] Ofirmev 1,000 mg In 100 100 / 100 200 / 200 ml @ 400 mls/hr IVPB Q6H [facility] Rx#:[id number] Intralipid 20% 250 ML @ 250 / 250 21 mls/hr IVPB DAILY@1700 [facility] Rx#:[id number] Zosyn 3.375 GM In 100 / 100 100 / 100 Dextrose 5% (Minibag+) 100 ML 100 ML @ 25 mls/hr IVPB Q8H [facility] Rx#: [id number] Oral 0 / 0 Other 461 / 461 Output: Urine 200 / 200 950 / 950 0 / 0 Other: Meal NPO # Voids 1 3 # Bowel Movements 0 Weight 63.2 kg Blood Glucose* 111 118 122 Patient Weight 06/07/16 23:59 Weight 63.2 kg - Labs 06/07/16 03:10 06/07/16 03:10 Diabetes panel 06/07/16 Range/Units 03:10 Sodium 139 (136-145) mEq/L Potassium 3.5 (3.5-4.5) mEq/L Chloride 103 (98-109) mEq/L Carbon Dioxide 29 (19-29) mEq/L BUN 6 L (7-20) mg/dL Creatinine 0.64 (0.57-1.11) mg/dL Glucose 136 H (70-99) mg/dL Calcium 8.6 (8.6-10.8) mg/dL AST 42 H (5-34) Units/L ALT 35 (0-55) Units/L Alkaline Phosphatase 72 (38-126) Units/L Albumin 2.2 L (3.5-5.0) g/dL Triglycerides 161 H (< 150) mg/dL Calcium panel 06/07/16 Range/Units 03:10 Calcium 8.6 (8.6-10.8) mg/dL Phosphorus 3.0 (2.3-4.7) mg/dL Albumin 2.2 L (3.5-5.0) g/dL Pituitary panel 06/07/16 Range/Units 03:10 Sodium 139 (136-145) mEq/L Potassium 3.5 (3.5-4.5) mEq/L Chloride 103 (98-109) mEq/L Carbon Dioxide 29 (19-29) mEq/L BUN 6 L (7-20) mg/dL Creatinine 0.64 (0.57-1.11) mg/dL Glucose 136 H (70-99) mg/dL Calcium 8.6 (8.6-10.8) mg/dL Adrenal panel 06/07/16 Range/Units 03:10 Sodium 139 (136-145) mEq/L Potassium 3.5 (3.5-4.5) mEq/L Chloride 103 (98-109) mEq/L Carbon Dioxide 29 (19-29) mEq/L BUN 6 L (7-20) mg/dL Creatinine 0.64 (0.57-1.11) mg/dL Glucose 136 H (70-99) mg/dL Calcium 8.6 (8.6-10.8) mg/dL Total Bilirubin 0.4 (0.2-1.2) mg/dL AST 42 H (5-34) Units/L ALT 35 (0-55) Units/L Alkaline Phosphatase 72 (38-126) Units/L Albumin 2.2 L (3.5-5.0) g/dL - Attending Attestation I have examined the patient and agree with the assessment provided by Dr Saunders. Continue IV ATB, continue to monitor the leukocytosis.
[2016-06-07] MEDS: Pantoprazole 40 MG VIAL IVP SCH (09:53)
[2016-06-07] MEDS ORDERED: Acetaminophen 325 MG TABLET PO PRN (12:56)
[2016-06-07] MEDS ORDERED: Clinimix E 5%-15% SOLUTION 2,000 ML with MVI, adult with vitamin K 10 ML IV SCH (17:00)
[2016-06-07] MEDS: *HR* HYDROmorphone (PF) 1 MG/ML SYRINGE IVP PRN (17:54)
[2016-06-07] MEDS: Ondansetron 4 MG/2 ML VIAL IVP PRN (23:25)
[2016-06-08] MEDS: Piperacillin/Tazobactam 3.375 GM in D5% in Water (Mini-Bag+) 100 ML IVPB SCH ×3 (02:25→17:08)
[2016-06-08 03:05] LABS: Basophils # 0.1 K/mcL (0.0-0.2); Basophils % 0.3 %; Eosinophils # 0.5 K/mcL (0.0-0.6); Eosinophils % 2.6 %; Hematocrit 30.4 % (35.3-44.9); Hemoglobin 10.3 g/dL (11.5-15.4); Immature Granulocytes % 0.8 % (0-4); Immature Platelets 1.7 % (1.1-6.1); Lymphocytes # 1.1 K/mcL (0.6-4.6); Lymphocytes % 6.1 %; Mean Corpuscular HGB Conc 33.9 g/dL (31.6-35.5); Mean Corpuscular Hemoglobin 29.7 pg (28.0-33.3); Mean Corpuscular Volume 87.6 fL (83.0-100.0); Mean Platelet Volume 8.8 fL (9.4-12.4); Monocytes # 0.9 K/mcL (0.0-1.3); Monocytes % 4.7 %; Neutrophils # 15.3 K/mcL (1.6-8.9); Platelet Count 447 K/mcL (140-400); Red Blood Count 3.47 M/mcL (3.82-4.97); Red Cell Distribution Width 11.9 % (11.5-14.5); Segmented Neutrophils % 85.5 %
[2016-06-08 03:17] LABS: BUN/Creatinine Ratio 15 (6-26); Blood Urea Nitrogen 9 mg/dL (7-20); Calcium 8.8 mg/dL (8.6-10.8); Carbon Dioxide 26 mEq/L (19-29); Chloride 104 mEq/L (98-109); Glucose 103 mg/dL (70-99); Magnesium 1.8 mg/dL (1.6-2.6); Osmolality,Calculated 289 (280-300); Phosphorous 3.4 mg/dL (2.3-4.7); Potassium 3.7 mEq/L (3.5-4.5); Sodium 140 mEq/L (136-145); eGFR For African Americans > 60 (> 60); eGFR For Non-African Americans > 60 (> 60)
--- NOTE | 2016-06-08 06:55 | General Surgery Progress Note ---
<MagdyGopal machuca Chela - Last Filed: 06/08/16 06:50> Date of Encounter: 06/08/16 Time of Encounter: 06:45 - Assessment and Plan (1) Acute diverticulitis Current Visit: Yes Status: Acute Postoperative day 4: Patient states she feels better today. Currently no distress, patient is sitting up in the chair at the time of my exam. She states her pain continues to improve. Denies nausea, emesis in the past 24 hours. Patient states she has several episodes of flatus overnight. Afebrile 99.0F, pulse 85, respiratory rate 18, blood pressure 168/83, oxygen saturation is 94% on RA Lungs: Clear, no rales, rhonchi, wheezes. Breath sounds present bilaterally. No abdominal or chest pain with inspiration. Heart: Regular rate and rhythm, no murmurs, rubs, gallops. Abdomen: Soft, nondistended, mildly tender to palpation over the incision, bowel sounds present. Incision is clean and dry, no erythema or drainage noted. Leukocytosis decreased to 17.9 today. Hemoglobin 10.3, hematocrit 30.4, platelet count 447. Comprehensive metabolic panel shows electrolytes, BUN, creatinine within normal limits. Pathology reveals diverticulitis with perforation. Impression: A 56-year-old female, postoperative day 4 status post exploratory celiotomy with sigmoid colectomy stapled colocolonic anastomosis for acute diverticulitis with perforation. Emesis has resolved; patient is passing flatus at this time, will advance diet to clear liquids as tolerated. Leukocytosis has decreased to 17.9; Patient continues to be on antibiotics. Patient is afebrile, improving clinically. No other signs of infection at this time. Anemia remains essentially stable from her preoperative state; will continue to monitor. Prolonged bowel dysfunction both pre-and postop - TPN has been initiated for caloric and protein nutrition until the patient is able to take nutrition by mouth. Patient was started on clear liquid diet, once patient has adequate nutritional intake by mouth we will discontinue TPN. We will continue to encourage ambulation (2) Perforation bowel Current Visit: Yes Status: Acute Objective Vital Signs - Last 8 Hours Temp Pulse Resp BP Pulse Ox 06/08/16 05:03 99.0 F 85 18 168/83 94 L 06/07/16 23:03 99.1 F 90 18 170/76 93 L Intake and Output 06/07/16 06/07/16 06/08/16 15:59 23:59 07:59 Intake Total 601 / 601 671 / 671 250 / 250 Output Total 0 / 0 1200 / 1200 300 / 300 Balance 601 / 601 -529 / -529 -50 / -50 Intake: IV Fluids 601 / 601 671 / 671 250 / 250 Clinimix E 5%-15% 401 / 401 571 / 571 SOLUTION 2,000 ML @ 50 mls/hr IV .Q24H [facility] with M.v.i. Adult 10 ml Rx#: [id number] Ofirmev 1,000 mg In 100 100 / 100 ml @ 400 mls/hr IVPB Q6H [facility] Rx#:[id number] Intralipid 20% 250 ML @ 250 / 250 21 mls/hr IVPB DAILY@1700 [facility] Rx#:[id number] Zosyn 3.375 GM In 100 / 100 100 / 100 Dextrose 5% (Minibag+) 100 ML 100 ML @ 25 mls/hr IVPB Q8H [facility] Rx#: [id number] Oral 0 / 0 0 / 0 Output: Urine 0 / 0 1200 / 1200 300 / 300 Other: Meal NPO NPO Percent of Meal Consumed 0% 0% # Bowel Movements 0 Weight 63.1 kg Blood Glucose* 122 115 120 Patient Weight 06/08/16 23:59 Weight 63.1 kg - Labs 06/08/16 02:50 06/08/16 02:50 Diabetes panel 06/08/16 Range/Units 02:50 Sodium 140 (136-145) mEq/L Potassium 3.7 (3.5-4.5) mEq/L Chloride 104 (98-109) mEq/L Carbon Dioxide 26 (19-29) mEq/L BUN 9 (7-20) mg/dL Creatinine 0.60 (0.57-1.11) mg/dL Glucose 103 H (70-99) mg/dL Calcium 8.8 (8.6-10.8) mg/dL Calcium panel 06/08/16 Range/Units 02:50 Calcium 8.8 (8.6-10.8) mg/dL Phosphorus 3.4 (2.3-4.7) mg/dL Pituitary panel 06/08/16 Range/Units 02:50 Sodium 140 (136-145) mEq/L Potassium 3.7 (3.5-4.5) mEq/L Chloride 104 (98-109) mEq/L Carbon Dioxide 26 (19-29) mEq/L BUN 9 (7-20) mg/dL Creatinine 0.60 (0.57-1.11) mg/dL Glucose 103 H (70-99) mg/dL Calcium 8.8 (8.6-10.8) mg/dL Adrenal panel 06/08/16 Range/Units 02:50 Sodium 140 (136-145) mEq/L Potassium 3.7 (3.5-4.5) mEq/L Chloride 104 (98-109) mEq/L Carbon Dioxide 26 (19-29) mEq/L BUN 9 (7-20) mg/dL Creatinine 0.60 (0.57-1.11) mg/dL Glucose 103 H (70-99) mg/dL Calcium 8.8 (8.6-10.8) mg/dL - VTE Documentation of Mechanical Device: Intermittent pneumatic compression device Consult Discharge Plan - Plan Referrals: Shon Abebe MD [Primary Care Provider] - <Jeremi Castillo - Last Filed: 06/08/16 13:05> Objective Vital Signs - Last 8 Hours Temp Pulse Resp BP Pulse Ox 06/08/16 11:00 98.3 F 85 16 157/78 94 L 06/08/16 08:00 99.2 F 79 16 172/78 95 06/08/16 07:00 94 L Intake and Output 06/07/16 06/08/16 06/08/16 23:59 07:59 15:59 Intake Total 671 / 671 350 / 350 1428 / 1428 Output Total 1200 / 1200 300 / 300 300 / 300 Balance -529 / -529 50 / 50 1128 / 1128 Intake: IV Fluids 671 / 671 350 / 350 1308 / 1308 Clinimix E 5%-15% 571 / 571 1308 / 1308 SOLUTION 2,000 ML @ 70 mls/hr IV .Q24H [facility] with M.v.i. Adult 10 ml Rx#: [id number] Intralipid 20% 250 ML @ 250 / 250 21 mls/hr IVPB DAILY@1700 [facility] Rx#:[id number] Zosyn 3.375 GM In 100 / 100 100 / 100 Dextrose 5% (Minibag+) 100 ML 100 ML @ 25 mls/hr IVPB Q8H [facility] Rx#: [id number] Oral 0 / 0 120 / 120 Output: Urine 1200 / 1200 300 / 300 300 / 300 Other: Meal NPO Breakfast Percent of Meal Consumed 0% Weight 63.1 kg Blood Glucose* 115 120 126 Patient Weight 06/08/16 23:59 Weight 63.1 kg - Labs 06/08/16 02:50 06/08/16 02:50 Diabetes panel 06/08/16 Range/Units 02:50 Sodium 140 (136-145) mEq/L Potassium 3.7 (3.5-4.5) mEq/L Chloride 104 (98-109) mEq/L Carbon Dioxide 26 (19-29) mEq/L BUN 9 (7-20) mg/dL Creatinine 0.60 (0.57-1.11) mg/dL Glucose 103 H (70-99) mg/dL Calcium 8.8 (8.6-10.8) mg/dL Calcium panel 06/08/16 Range/Units 02:50 Calcium 8.8 (8.6-10.8) mg/dL Phosphorus 3.4 (2.3-4.7) mg/dL Pituitary panel 06/08/16 Range/Units 02:50 Sodium 140 (136-145) mEq/L Potassium 3.7 (3.5-4.5) mEq/L Chloride 104 (98-109) mEq/L Carbon Dioxide 26 (19-29) mEq/L BUN 9 (7-20) mg/dL Creatinine 0.60 (0.57-1.11) mg/dL Glucose 103 H (70-99) mg/dL Calcium 8.8 (8.6-10.8) mg/dL Adrenal panel 06/08/16 Range/Units 02:50 Sodium 140 (136-145) mEq/L Potassium 3.7 (3.5-4.5) mEq/L Chloride 104 (98-109) mEq/L Carbon Dioxide 26 (19-29) mEq/L BUN 9 (7-20) mg/dL Creatinine 0.60 (0.57-1.11) mg/dL Glucose 103 H (70-99) mg/dL Calcium 8.8 (8.6-10.8) mg/dL - Attending Attestation I have examined the patient and agree with Dr Saunders's assessment Patient tolerating clear liquids - will taper TPN and advance diet to full liquids H&H increased as patient mobilizes blayne operative fluids.
[2016-06-08] MEDS: *HR* HYDROmorphone (PF) 1 MG/ML SYRINGE IVP PRN (08:14)
[2016-06-08] MEDS: Pantoprazole 40 MG VIAL IVP SCH (08:15)
[2016-06-08] MEDS ORDERED: *HR* HYDROmorphone (PF) 1 MG/ML SYRINGE IVP PRN (13:13)
[2016-06-08] MEDS: *HR* OxyCODONE/APAP 5/325 TABLET PO PRN ×2 (14:25→22:35)
[2016-06-08] MEDS ORDERED: Clinimix E 5%-15% SOLUTION 2,000 ML with MVI, adult with vitamin K 10 ML IV SCH (17:00)
[2016-06-09] MEDS: Piperacillin/Tazobactam 3.375 GM in D5% in Water (Mini-Bag+) 100 ML IVPB SCH ×2 (02:18→10:30)
[2016-06-09 03:44] LABS: Basophils % 0.2 %; Eosinophils # 0.5 K/mcL (0.0-0.6); Eosinophils % 4.1 %; Hemoglobin 9.7 g/dL (11.5-15.4); Immature Granulocytes % 0.9 % (0-4); Immature Platelets 1.3 % (1.1-6.1); Lymphocytes # 1.4 K/mcL (0.6-4.6); Lymphocytes % 10.2 %; Mean Corpuscular HGB Conc 33.4 g/dL (31.6-35.5); Mean Corpuscular Hemoglobin 29.6 pg (28.0-33.3); Mean Corpuscular Volume 88.4 fL (83.0-100.0); Mean Platelet Volume 8.6 fL (9.4-12.4); Monocytes # 1.1 K/mcL (0.0-1.3); Neutrophils # 10.1 K/mcL (1.6-8.9); Platelet Count 449 K/mcL (140-400); Red Blood Count 3.28 M/mcL (3.82-4.97); Segmented Neutrophils % 76.6 %
[2016-06-09] MEDS: *HR* OxyCODONE/APAP 5/325 TABLET PO PRN ×3 (07:43→21:30)
[2016-06-09] MEDS ORDERED: Clinimix E 5%-15% SOLUTION 2,000 ML with MVI, adult with vitamin K 10 ML IV SCH (09:53)
--- NOTE | 2016-06-09 10:01 | General Surgery Progress Note ---
<DenisseGopal vincent - Last Filed: 06/09/16 13:19> Date of Encounter: 06/09/16 Time of Encounter: 09:40 - Assessment and Plan (1) Acute diverticulitis Current Visit: Yes Status: Acute Postoperative day 5: Patient states she continues to feels better. Currently no distress, patient is sitting up in the chair at the time of my exam. She states her pain continues to improve. Denies nausea, emesis in the past 24 hours. Patient states she continues to have flatus. Afebrile 98.6F, pulse 90, respiratory rate 18, blood pressure 165/81, oxygen saturation is 96% on RA Lungs: Clear, no rales, rhonchi, wheezes. Breath sounds present bilaterally. No abdominal or chest pain with inspiration. Heart: Regular rate and rhythm, no murmurs, rubs, gallops. Abdomen: Soft, nondistended, mildly tender to palpation over the incision, bowel sounds present. Incision is clean and dry, no erythema or drainage noted. Leukocytosis decreased to 13.2 today. Hemoglobin 9.7, hematocrit 29.0, platelet count 449. Pathology reveals diverticulitis with perforation. Impression: A 56-year-old female, postoperative day 5 status post exploratory celiotomy with sigmoid colectomy stapled colocolonic anastomosis for acute diverticulitis with perforation. Emesis has resolved; patient is passing flatus at this time, will advance to regular diet as tolerated. we will decrease TPN rate to 50 mL per hour with plans to discontinue at 1700. Leukocytosis has decreased to 13.2; Patient continues to be on antibiotics, will d/c today. Patient is afebrile, improving clinically. No other signs of infection at this time. Anemia remains essentially stable from her preoperative state, no evidence of active bleeding; will continue to monitor. Prolonged bowel dysfunction both pre-and postop - patient is passing flatus, will continue to encourage PO intake. We will continue to encourage ambulation Will restart home RA medications. (2) Perforation bowel Current Visit: Yes Status: Acute Objective Vital Signs - Last 8 Hours Temp Pulse Resp BP Pulse Ox 06/09/16 07:45 96 06/09/16 07:30 98.6 F 90 18 165/81 96 06/09/16 03:58 98.8 F 80 16 149/65 93 L Intake and Output 06/08/16 06/09/16 06/09/16 23:59 07:59 15:59 Intake Total 921 / 921 100 / 100 1010 / 1010 Output Total 325 / 325 1200 / 1200 Balance 596 / 596 -1100 / -1100 1010 / 1010 Intake: IV Fluids 456 / 456 100 / 100 1010 / 1010 Clinimix E 5%-15% 356 / 356 1010 / 1010 SOLUTION 2,000 ML @ 70 mls/hr IV .Q24H ELFEGO with M.v.i. Adult 10 ml Rx#: [id number] Zosyn 3.375 GM In 100 / 100 100 / 100 Dextrose 5% (Minibag+) 100 ML 100 ML @ 25 mls/hr IVPB Q8H ELFEGO Rx#: [id number] Oral 465 / 465 0 / 0 Output: Urine 325 / 325 1200 / 1200 Other: Meal water pitcher Weight 62.7 kg Blood Glucose* 119 121 Patient Weight 06/09/16 23:59 Weight 62.7 kg - Labs 06/09/16 03:35 06/08/16 02:50 - VTE Documentation of Mechanical Device: Intermittent pneumatic compression device Consult Discharge Plan - Plan Referrals: Jeremi Castillo MD [Non-Partnered Physician] - Shon Abebe MD [Primary Care Provider] - <Jeremi Castillo - Last Filed: 06/09/16 13:39> Objective Vital Signs - Last 8 Hours Temp Pulse Resp BP Pulse Ox 06/09/16 11:00 97.3 F L 90 17 158/89 97 06/09/16 07:45 96 06/09/16 07:30 98.6 F 90 18 165/81 96 Intake and Output 06/08/16 06/09/16 06/09/16 23:59 07:59 15:59 Intake Total 921 / 921 100 / 100 1450 / 1450 Output Total 325 / 325 1200 / 1200 Balance 596 / 596 -1100 / -1100 1450 / 1450 Intake: IV Fluids 456 / 456 100 / 100 1010 / 1010 Clinimix E 5%-15% 356 / 356 1010 / 1010 SOLUTION 2,000 ML @ 70 mls/hr IV .Q24H ELFEGO with M.v.i. Adult 10 ml Rx#: [id number] Zosyn 3.375 GM In 100 / 100 100 / 100 Dextrose 5% (Minibag+) 100 ML 100 ML @ 25 mls/hr IVPB Q8H ELFEGO Rx#: [id number] Oral 465 / 465 0 / 0 440 / 440 Output: Urine 325 / 325 1200 / 1200 Other: Meal water pitcher Nourishment/Supplement Percent of Meal Consumed 0% # Voids 1 Weight 62.7 kg Blood Glucose* 119 121 116 Patient Weight 06/09/16 23:59 Weight 62.7 kg - Labs 06/09/16 03:35 06/08/16 02:50 - Attending Attestation I have examined the patient and discussed care with Dr Saunders. I agree with the patient 's current assessment. and treatment plan.
[2016-06-09] MEDS: sulfaSALAzine 500 MG TABLET PO SCH (21:29)
[2016-06-10] MEDS: *HR* OxyCODONE/APAP 5/325 TABLET PO PRN ×2 (03:18→10:30)
[2016-06-10 03:34] LABS: Basophils % 0.2 %; Eosinophils # 0.4 K/mcL (0.0-0.6); Hematocrit 29.2 % (35.3-44.9); Hemoglobin 9.8 g/dL (11.5-15.4); Immature Granulocytes % 0.4 % (0-4); Lymphocytes # 1.3 K/mcL (0.6-4.6); Lymphocytes % 10.1 %; Mean Corpuscular HGB Conc 33.6 g/dL (31.6-35.5); Mean Corpuscular Hemoglobin 29.6 pg (28.0-33.3); Mean Corpuscular Volume 88.2 fL (83.0-100.0); Mean Platelet Volume 8.7 fL (9.4-12.4); Monocytes # 1.2 K/mcL (0.0-1.3); Platelet Count 400 K/mcL (140-400); Red Blood Count 3.31 M/mcL (3.82-4.97); Red Cell Distribution Width 12.2 % (11.5-14.5); Segmented Neutrophils % 77.3 %
[2016-06-10 07:29] VITALS: BP 146/75
[2016-06-10] MEDS: sulfaSALAzine 500 MG TABLET PO SCH (08:50)
--- NOTE | 2016-06-10 09:05 | General Surgery Progress Note ---
<Gopal Saunders - Last Filed: 06/10/16 08:56> Date of Encounter: 06/10/16 Time of Encounter: 08:30 - Assessment and Plan (1) Acute diverticulitis Current Visit: Yes Status: Acute POD #6 / discharge summary Postoperative day 6: Patient feeling well, no complaints at this time. Tolerating diet, no nausea, vomiting. Continues to pass flatus, no bowel movements at this time. Patient states pain is improving Afebrile 98.7F, pulse 78, respiratory rate 16, blood pressure 146/75, oxygen saturation is 97% on RA Lungs: Clear, no rales, rhonchi, wheezes. Breath sounds present bilaterally. No abdominal or chest pain with inspiration. Heart: Regular rate and rhythm, no murmurs, rubs, gallops. Abdomen: Soft, nondistended, mildly tender to palpation over the incision, bowel sounds present. Incision is clean and dry, no erythema or drainage noted. Leukocytosis decreased to 12.9 today. Hemoglobin 9.8, hematocrit 29.2, platelet count 400. Pathology reveals diverticulitis with perforation. Impression: A 56-year-old female, postoperative day 6 status post exploratory celiotomy with sigmoid colectomy stapled colocolonic anastomosis for acute diverticulitis with perforation. Status has improved significantly and is stable for discharge at this time. Emesis has resolved; patient is passing flatus at this time, patient is tolerating regular diet well. TPN was turned off yesterday. Leukocytosis has decreased to 12.9; antibiotics have been discontinued. Anemia remains essentially stable from her preoperative state, no evidence of active bleeding. Prolonged bowel dysfunction both pre-and postop - patient is passing flatus, will continue to encourage PO intake at home as tolerated. Rheumatoid arthritis - home rheumatoid arthritis medications have been restarted. Recommend follow-up with donation specialist for further management as an outpatient. Recommendations: Discharge to home today Follow up in office next week. (2) Perforation bowel Current Visit: Yes Status: Acute Objective Vital Signs - Last 8 Hours Temp Pulse Resp BP Pulse Ox 06/10/16 07:27 98.7 F 78 16 146/75 97 06/10/16 03:16 99.3 F 95 14 165/75 96 Intake and Output 06/09/16 06/10/16 06/10/16 23:59 07:59 15:59 Intake Total 1120 / 1120 0 / 0 Output Total 500 / 500 750 / 750 Balance 620 / 620 -750 / -750 Intake: IV Fluids 1000 / 1000 Clinimix E 5%-15% 1000 / 1000 SOLUTION 2,000 ML @ 70 mls/hr IV .Q24H ELFEGO with M.v.i. Adult 10 ml Rx#: [id number] Oral 120 / 120 0 / 0 Output: Urine 500 / 500 750 / 750 Other: Meal Dinner Percent of Meal Consumed 5% Weight 62.7 kg Patient Weight 06/10/16 23:59 Weight 62.7 kg - Labs 06/10/16 03:20 06/08/16 02:50 - VTE Documentation of Mechanical Device: Intermittent pneumatic compression device Consult Discharge Plan - Plan Referrals: Jeremi Castillo MD [Non-Partnered Physician] - Shon Abebe MD [Primary Care Provider] - <Jeremi Castillo - Last Filed: 06/10/16 09:50> Objective Vital Signs - Last 8 Hours Temp Pulse Resp BP Pulse Ox 06/10/16 07:27 98.7 F 78 16 146/75 97 06/10/16 03:16 99.3 F 95 14 165/75 96 Intake and Output 06/09/16 06/10/16 06/10/16 23:59 07:59 15:59 Intake Total 1120 / 1120 0 / 0 120 / 120 Output Total 500 / 500 750 / 750 Balance 620 / 620 -750 / -750 120 / 120 Intake: IV Fluids 1000 / 1000 Clinimix E 5%-15% 1000 / 1000 SOLUTION 2,000 ML @ 70 mls/hr IV .Q24H ELFEGO with M.v.i. Adult 10 ml Rx#: [id number] Oral 120 / 120 0 / 0 120 / 120 Output: Urine 500 / 500 750 / 750 Other: Meal Dinner Breakfast Percent of Meal Consumed 5% 50% Weight 62.7 kg Patient Weight 06/10/16 23:59 Weight 62.7 kg - Labs 06/10/16 03:20 06/08/16 02:50 - Attending Attestation I have examined the patient and discussed the patient's treatment plan with the patient and Dr Saunders I agree with Dr Saunders's assessment and patient 's readiness for discharge home. Impression: Left lower quadrant abdominal pain - resolved Acute sigmoid diverticulitis with perforation and pericolic abscess - POD #6 a/p sigmoid colectomy with stapled EEA colocolonic anastomosis; intraoperative rigid sigmoidoscopy, incidental appendectomy and central venous line placement Left pneumothorax secondary to central venous line placement - improved/ resolved History of rheumatoid arthritis Perioperative anemia - likely due to fluids/hydration necessary for therapy of the acute sigmoid diverticulitis with perforation. Expected to resolve without intervention Protein calorie malnutrition related to the acute sigmoid diverticulitis and prolonged bowel dysfunction as a result of this diagnosis and subsequent postoperative recovery Discharge status: Good Instructions: Regular diet Activity as tolerated, lifting limited to less than 20 pounds Patient may shower, wash incisions with soap and water Tylenol or other [id number] medications as needed for pain Prescription for Percocet 5/325 one every 6 hours as needed for pain not relieved by [id number] medications, #20 Follow up my office, , 06/16/16.
--- NOTE | 2016-06-10 10:04 | Discharge Summary ---
Outpatient Proc Discharge Plan - Plan Additional Instructions: Regular diet Patient may shower, wash incision with soap and water Activity as tolerated; lifting limited to less than 20 pounds Follow-up my office, , 06/16/16. Tylenol, ibuprofen or other over the counters as needed for pain Prescription for Percocet 5/325 one every 6 hours as needed for pain not relieved by [id number] medication patient may resume home meds Prescriptions: OxyCODONE/APAP 5/325 [Percocet 5/325 MG] 1 each PO Q6HR PRN #20 tablet PRN Reason: Pain Home Medications: Calcium Carbonate [Calcium] 1,000 mg PO DAILY 05/30/16 [History] Hydroxychloroquine [Plaquenuil] 200 mg PO BID 05/30/16 [History] Meloxicam [Mobic] 15 mg PO DAILY 05/30/16 [History] Sulfasalazine [Azulfidine] 500 mg PO BID 05/30/16 [History] Acetaminophen [Tylenol] 650 mg PO Q6HR PRN #0 tablet 06/10/16 [Rx] OxyCODONE/APAP 5/325 [Percocet 5/325 MG] 1 each PO Q6HR PRN #20 tablet 06/10/16 [Rx]
== END 2016-06-10 12:30 | disposition home or self-care (01) | DRG 330 ==
LOC: 3BNU → 3ANU 06-07 10:51
PROVIDERS: ADMIT Surgery; ATTEND Surgery
PROC: GENAPPY (ICD-10-PCS; 2016-06-04 08:00)